=== PATIENT | male | born 1960 | race Caucasian/White ===

== ENCOUNTER → 2024-08-27 11:21 | Outpatient (CLI) | payer OTHER, SELFPAY ==
--- NOTE | 2024-08-27 11:24 | DI.MRI.S_ITS ---
PROCEDURE: MR LUMBAR SPINE WO CON INDICATIONS: LUMBAR STENOSIS TECHNIQUE: Noncontrast sagittal T1 spin echo and T2 fast echo, sagittal STIR, and T2 fast spin echo through the lumbar spine. In cases with scoliosis, additional coronal T2 fast spin echo may be performed. COMPARISON: None. FINDINGS: Image quality: Excellent. Alignment and Curvature: Mild levocurvature. Straightening of the normal lumbar lordosis. No spondylolisthesis. Bone Marrow: Degenerative endplate changes, most pronounced at L5-S1. Marrow is of normal overall signal. No acute vertebral body compression fractures. Spinal Cord: Conus medullaris terminates at the L1 level. Visualized cord demonstrates normal signal and size. Paraspinous Soft Tissues: No paravertebral masses. T12-L1: Normal appearance. L1-L2: Disc desiccation. Mild facet arthropathy. No central canal or neural foraminal stenosis. L2-L3: Disc desiccation. Minimal disc bulge. Facet arthropathy. Epidural lipomatosis. Mild central canal stenosis. No significant neural foraminal stenosis. L3-L4: Disc desiccation and mild diffuse disc bulge with posterior annular tear. Facet arthropathy and thickening of the ligamentum flavum. Epidural lipomatosis. Mild to moderate central canal stenosis. Mild narrowing of the lateral recesses with abutment of the descending L4 nerve roots. No significant neural foraminal stenosis. L4-L5: Disc desiccation and mild diffuse disc bulge with small superimposed central disc protrusion and posterior annular tear. Facet arthropathy. Mild to moderate central canal stenosis. Moderate right and mild left neural foraminal stenosis. L5-S1: Disc desiccation and moderate disc height loss. Mild diffuse disc bulge with small superimposed central disc extrusion extending superiorly. Epidural lipomatosis. Mild facet arthropathy. Mild central canal stenosis. Moderate left and no right neural foraminal stenosis. IMPRESSION: 1. Multilevel degenerative changes of the lumbar spine as described above. 2. [id number] central canal stenosis at L3-L4 with narrowing of the lateral recesses and abutment of the descending L4 nerve roots. Mild to moderate central canal stenosis at L4-5. 3. Moderate neural foraminal stenosis on the right at L4-5 and left at L5-S1. Dictated by: Isaiah Monk M.D. on 08/27/2024 at 14:13 Approved by: Isaiah Monk M.D. on 08/27/2024 at 14:18
== END ==
LOC: MRI 11:23
PROVIDERS: PCP Internal Medicine; Referring Provider Orthopaedic Surgery Orthopaedic Surgery of the Spine; Visit Provider Orthopaedic Surgery Orthopaedic Surgery of the Spine
DX: M48.062 Spinal stenosis, lumbar region with neurogenic claudication (principal); M48.07 Spinal stenosis, lumbosacral region; M47.816 Spondylosis without myelopathy or radiculopathy, lumbar region; M47.817 Spondylosis without myelopathy or radiculopathy, lumbosacral region
CPT/HCPCS: 72148

== ENCOUNTER → 2024-09-04 10:34 | Outpatient (CLI) | payer OTHER, SELFPAY ==
--- NOTE | 2024-09-04 10:35 | DI.CT.S_ITS ---
PROCEDURE: CT LE LT W CON INDICATIONS: PAIN IN LEFT HIP TECHNIQUE: Noncontrast 3 mm axial sections acquired through the bony pelvis. Additional 3 mm axial sections acquired through the symptomatic hip joint, with coronal and sagittal reformats. COMPARISON: [facility] [place], [place], XR PELVIS WITH LATERAL HIP LEFT, 08/27/2024, 10:40. FINDINGS: Image quality: Excellent. Bones: Mild lower lumbar facet arthropathy. Lumbar sacral segmentation anomaly. The sacrum is intact. Mild degenerative changes of the left sacroiliac joint. Healed fracture of the right superior and inferior ramus fracture. The right hip is well aligned. No acute fracture or dislocation of the right hip. Cephalomedullary fixation of the right femur with cerclage wires, partially visualized. Healed fracture of the left pubic body in the left inferior pubic ramus. Plate and screw fixation of the left inferior acetabulum, with multiple proud screw. 1 of the screw is not connected to the lateral plate. Otherwise no hardware complication. No acute fracture or dislocation of the left hip. Mild degenerative changes of the left hip. Soft tissues: The right iliopsoas, adductor, hamstring, tendons unremarkable. Enthesophyte at the right greater trochanter. Small ossification of the right gluteal minimus, representing prior injury. Limited evaluation of the left gluteal minimus and medius tendon given subjacent metallic artifact. The right iliopsoas, and adductor, hamstring, and the left gluteal minimus and medius are grossly unremarkable. Mild enlargement of the prostate. Mild sigmoid colon diverticulosis. IMPRESSION: 1. Multiple healed fractures in the pelvis. 2. Cephalomedullary fixation of the right femur, partially visualized. 3. Plate and screw fixation of the left acetabulum with multiple proud screws. One of the screws is not connected to the lateral plate. Dictated by: Adwoa Haynes M.D. on 09/04/2024 at 15:22 Approved by: Adwoa Haynes M.D. on 09/04/2024 at 15:32
== END ==
LOC: CT 10:35
PROVIDERS: PCP Internal Medicine; Referring Provider Orthopaedic Surgery Adult Reconstructive Orthopaedic Surgery; Visit Provider Orthopaedic Surgery Adult Reconstructive Orthopaedic Surgery
DX: M47.816 Spondylosis without myelopathy or radiculopathy, lumbar region (principal); K57.30 Diverticulosis of large intestine without perforation or abscess without bleeding; N40.0 Benign prostatic hyperplasia without lower urinary tract symptoms; M25.552 Pain in left hip; Z87.81 Personal history of (healed) traumatic fracture; Z96.7 Presence of other bone and tendon implants
CPT/HCPCS: 73700

== ENCOUNTER → 2024-10-02 15:44 | Outpatient (CLI) | payer OTHER, SELFPAY ==
--- NOTE | 2024-10-02 15:45 | DI.MRI.S_ITS ---
PROCEDURE: MR SHOULDER RT WO CON INDICATIONS: Bursitis of right shoulder TECHNIQUE: Noncontrast oblique coronal T2 fast spin echo with fat saturation, oblique sagittal T1 spin echo and T2 fast spin echo with fat saturation, axial T1 spin echo and T2 fast spin echo with fat saturation through the shoulder. Five diagnostic sequences. COMPARISON: None. FINDINGS: Image quality: Excellent. Rotator cuff: Abnormal appearance of the rotator cuff with heterogeneous increased T2 weighted signal with thinning of the mid and distal supraspinatus and infraspinatus tendons suspicious for tendinopathy with partial tear but without myotendinous retraction. Associated moderate subacromial/subdeltoid bursal fluid and mild surrounding edema. The subscapularis and teres minor muscles and tendons normal. No significant muscular fatty atrophy. Bones and bursae: Moderate degenerative changes of the acromioclavicular joint with joint space narrowing, osteophytes, subchondral edema and trace AC joint fluid. Type 2 mildly lateral downsloping acromion. No fractures. Capsule and soft tissues: Labrum without MR evidence of tear. Mild degenerative changes of the glenohumeral joint with mild joint space narrowing and mild diffuse cartilaginous thinning of the humeral head and glenoid. The long head of the biceps tendon demonstrates normal location and morphology. IMPRESSION: Tendinopathy and partial tear distal supraspinatus and infraspinatus. Moderate subacromial/subdeltoid bursal fluid as discussed above. Moderate degenerative changes. Dictated by: Mika Alarcon M.D. on 10/04/2024 at 9:51 Approved by: Mika Alarcon M.D. on 10/04/2024 at 10:01
== END ==
PROVIDERS: PCP Internal Medicine; Referring Provider Orthopaedic Surgery; Visit Provider Orthopaedic Surgery
DX: M75.111 Incomplete rotator cuff tear or rupture of right shoulder, not specified as traumatic (principal); M75.51 Bursitis of right shoulder
CPT/HCPCS: 73221